=== PATIENT | male | born 1995 | race Caucasian/White ===

== ENCOUNTER 2019-01-17 14:11 | Emergency (ER) | payer BC, OTHER ==
[~2019-01-17] VITALS: Ht 165.1 cm; Wt 59.0 kg
[2019-01-17] MEDS ORDERED: ONDANSETRON 4 MG (ZOFRAN) ORAL DISSOLVE TAB PO STA (14:26)
[2019-01-17] MEDS ORDERED: PANTOPRAZOLE 40 MG (PROTONIX) TAB PO ONE (14:30)
--- NOTE | 2019-01-17 14:33 | ED GI ---
General Stated Complaint: VOMITING BLOOD Source of Information: Patient Exam Limitations: No Limitations History of Present Illness Date Seen by Provider: Jan 17, 2019 Time Seen by Provider: 14:18 Initial Comments Patient presents to ER by private conveyance with chief complaint that he knows some bright red blood in his vomit this morning. This today he participated in a festival and drank a significant quantity of beer to the point that this morning he had a hangover and vomited 3 times. The first 2 times were normal but the third time he noticed some bright red blood in it. He is on have a history of anemia, having no chest pain shortness of breath. He has some mild intermittent nausea still. He has no significant medical history does not take any medicines nor follow with a doctor. He denies a history of IV drug use, hepatitis or liver disease. He's never had endoscopy done. He denies history of GERD Allergies and Home Medications Allergies Coded Allergies: No Known Drug Allergies (Unverified , 01/17/19) Home Medications Pantoprazole Sodium 40 Mg Tablet.dr, 40 MG PO DAILY Prescribed by: MT GARDNER on 01/17/19 1435 Sucralfate 1 Gm Tablet, 1 GM PO QIDACHS Prescribed by: MT GARDNER on 01/17/19 1435 Patient Home Medication List Home Medication List Reviewed: Yes Review of Systems Review of Systems Constitutional: No chills, No diaphoresis EENTM: No Blurred Vision, No Double Vision Respiratory: Denies Cough, Denies Shortness of Air Cardiovascular: Denies Chest Pain, Denies Lightheadedness Gastrointestinal: See HPI; Denies Constipated, Denies Diarrhea; Nausea, Vomiti ng Musculoskeletal: No back pain, No joint pain Past Wvpvafz-[id number]-Wbgfil Hx Patient Social History Alcohol Use: Occasionally Uses Recreational Drug Use: No Smoking Status: Never a Smoker Physical Exam Vital Signs Vital Signs - First Documented 01/17/19 14:21 Temp 98.6 Pulse 110 Resp 18 B/P (MAP) 122/80 (94) Pulse Ox 98 O2 Delivery Room Air Capillary Refill : Height/Weight/BMI Height: '" Weight: lbs. oz. kg; BMI Method: General Appearance: WD/WN, no apparent distress HEENT: PERRL/EOMI, normal ENT inspection Neck: non-tender, full range of motion, normal inspection Respiratory: chest non-tender, lungs clear, normal breath sounds, no respiratory distress, no accessory muscle use Cardiovascular: normal peripheral pulses, regular rate, rhythm Peripheral Pulses: 2+ Radial Pulses (R), 2+ Radial Pulses (L) Gastrointestinal: non tender, soft Neurologic/Psychiatric: alert, normal mood/affect, oriented x 3 Skin: normal color, warm/dry Progress/Results/Core Measures Results/Orders Lab Results Laboratory Tests Test 01/17/19 14:55 Range/Units White Blood Count 14.1 H 4.3-11.0 10^3/uL Red Blood Count 5.58 4.35-5.85 10^6/uL Hemoglobin 16.3 13.3-17.7 G/DL Hematocrit 47 40-54 % Mean Corpuscular Volume 85 80-99 FL Mean Corpuscular Hemoglobin 29 25-34 PG Mean Corpuscular Hemoglobin Concent 34 32-36 G/DL Red Cell Distribution Width 12.9 10.0-14.5 % Platelet Count 300 130-400 10^3/uL Mean Platelet Volume 10.1 7.4-10.4 FL Neutrophils (%) (Auto) 85 H 42-75 % Lymphocytes (%) (Auto) 11 L 12-44 % Monocytes (%) (Auto) 3 0-12 % Eosinophils (%) (Auto) 1 0-10 % Basophils (%) (Auto) 1 0-10 % Neutrophils # (Auto) 12.0 H 1.8-7.8 X 10^3 Lymphocytes # (Auto) 1.5 1.0-4.0 X 10^3 Monocytes # (Auto) 0.5 0.0-1.0 X 10^3 Eosinophils # (Auto) 0.1 0.0-0.3 10^3/uL Basophils # (Auto) 0.1 0.0-0.1 10^3/uL Neutrophils % (Manual) 78 % Lymphocytes % (Manual) 14 % Monocytes % (Manual) 2 % Eosinophils % (Manual) 1 % Basophils % (Manual) 0 % Band Neutrophils 5 % Blood Morphology Comment NORMAL Sodium Level 144 135-145 MMOL/L Potassium Level 4.1 3.6-5.0 MMOL/L Chloride Level 101 98-107 MMOL/L Carbon Dioxide Level 22 21-32 MMOL/L Anion Gap 21 H 5-14 MMOL/L Blood Urea Nitrogen 12 7-18 MG/DL Creatinine 0.88 0.60-1.30 MG/DL Estimat Glomerular Filtration Rate > 60 BUN/Creatinine Ratio 14 Glucose Level 112 H 70-105 MG/DL Calcium Level 9.9 8.5-10.1 MG/DL Corrected Calcium 8.5-10.1 MG/DL Total Bilirubin 0.7 0.1-1.0 MG/DL Aspartate Amino Transf (AST/SGOT) 23 5-34 U/L Alanine Aminotransferase (ALT/SGPT) 28 0-55 U/L Alkaline Phosphatase 66 40-136 U/L Total Protein 8.3 H 6.4-8.2 GM/DL Albumin 4.9 H 3.2-4.5 GM/DL Lipase 23 8-78 U/L My Orders Orders - MT GARDNER Cbc With Automated Diff (01/17/19 14:26) Comprehensive Metabolic Panel (01/17/19 14:26) Lipase (01/17/19 14:26) Ondansetron Oral Dissolve Tab (Zofran (01/17/19 14:26) Pantoprazole Tablet (Protonix Tablet) (01/17/19 14:30) Manual Differential (01/17/19 14:55) Medications Given in ED Current Medications Medications Dose Ordered Sig/Shin Route Start Time Stop Time Status Last Admin Dose Admin Pantoprazole Sodium 40 mg ONCE ONCE PO 01/17/19 14:30 01/17/19 14:31 DC 01/17/19 14:47 40 MG Vital Signs/I&O 01/17/19 14:21 Temp 98.6 Pulse 110 Resp 18 B/P (MAP) 122/80 (94) Pulse Ox 98 O2 Delivery Room Air Progress Progress Note : Time: 14:30 Progress Note I suspect the patient is suffering from some erosive esophagitis related to his alcohol consumption and frequent vomiting this morning. He is mildly tachycardic in the 108 initially so we'll draw some labs to prove is not anemic. He is probably dehydrated from the alcohol intake. Pantoprazole and Zofran. We can set him up for follow-up with the general surgeon for endoscopy outpatient. Departure Impression Primary Impression: Hematemesis with nausea Additional Impression: Acute gastritis with bleeding Qualified Codes: K29.21 - Alcoholic gastritis with bleeding Disposition: HOME, SELF-CARE Condition: Stable Departure-Patient Inst. Decision time for Depature: 15:41 Referrals: DINO NOVOA DO NO,LOCAL PHYSICIAN (PCP) Primary Care Physician Patient Instructions: Gastritis (DC), Nausea and Vomiting, Adult Add. Discharge Instructions: If you have nausea take Zofran 1 tablet every 6 hours under the tongue as necessary. Lots of fluids will be helpful. When you're nausea is gone you can start advancing your diet towards more substantial foods. Take the pantoprazole 40 mg daily for the next 2 weeks. Take the Carafate 30 minutes prior to meals and at bedtime, 4 times a day for the next 2 weeks to protect your stomach lining. If you're still having symptoms by Saturday or symptoms of acid reflux, indigestion at the end of the 2 weeks then you should follow-up with the general surgeon Dr. Novoa by calling for an appointment. Return to the ER to begin to experience chest pain, intractable nausea with vomiting, abdominal pain or other worrisome symptom. Scripts Sucralfate (Carafate) 1 Gm Tablet 1 GM PO QIDACHS for 14 Days, #56 TAB 0 Refills Prov: MT GARDNER 01/17/19 Pantoprazole Sodium (Pantoprazole Sodium) 40 Mg Tablet. 40 MG PO DAILY for 14 Days, #14 TAB 0 Refills Prov: MT GARDNER 01/17/19 MT GARDNER Jan 17, 2019 14:33
[2019-01-17] MEDS ORDERED: PANT40TA3 PO (14:35)
[2019-01-17] MEDS ORDERED: SUCR1TAB36 PO (14:35)
[2019-01-17 15:04] LABS: WHITE BLOOD COUNT 14.1 10^3/uL (4.3-11.0)
[2019-01-17 15:05] LABS: BASOPHILS # (AUTO) 0.1 10^3/uL (0.0-0.1); BASOPHILS % (AUTO) 1 % (0-10); EOSINOPHILS # (AUTO) 0.1 10^3/uL (0.0-0.3); EOSINOPHILS % (AUTO) 1 % (0-10); HEMATOCRIT 47 % (40-54); HEMOGLOBIN 16.3 G/DL (13.3-17.7); LYMPHOCYTES # (AUTO) 1.5 X 10^3 (1.0-4.0); LYMPHOCYTES % (AUTO) 11 % (12-44); MEAN CORPUSCULAR HEMOGLOBIN 29 PG (25-34); MEAN CORPUSCULAR HGB CONC 34 G/DL (32-36); MEAN CORPUSCULAR VOLUME 85 FL (80-99); MEAN PLATELET VOLUME 10.1 FL (7.4-10.4); MONOCYTES # (AUTO) 0.5 X 10^3 (0.0-1.0); MONOCYTES % (AUTO) 3 % (0-12); NEUTROPHILS % (AUTO) 85 % (42-75); PLATELET COUNT 300 10^3/uL (130-400); RED CELL DISTRIBUTION WIDTH 12.9 % (10.0-14.5)
[2019-01-17 15:23] LABS: ALANINE AMINOTRANSFERASE 28 U/L (0-55); ALBUMIN 4.9 GM/DL (3.2-4.5); ALKALINE PHOSPHATASE 66 U/L (40-136); BAND NEUTROPHILS 5 %; BILIRUBIN,TOTAL 0.7 MG/DL (0.1-1.0); BUN/CREATININE RATIO 14; CALCIUM 9.9 MG/DL (8.5-10.1); CARBON DIOXIDE 22 MMOL/L (21-32); CHLORIDE 101 MMOL/L (98-107); CREATININE SERUM 0.88 MG/DL (0.60-1.30); EOSINOPHILS % (MANUAL) 1 %; GFR ESTIMATED > 60; GLUCOSE 112 MG/DL (70-105); LIPASE 23 U/L (8-78); LYMPHOCYTES % (MANUAL) 14 %; MONOCYTES % (MANUAL) 2 %; NEUTROPHILS % (MANUAL) 78 %; POTASSIUM 4.1 MMOL/L (3.6-5.0); SODIUM 144 MMOL/L (135-145); TOTAL PROTEIN 8.3 GM/DL (6.4-8.2)
[2019-01-17 15:24] LABS: BASOPHILS % (MANUAL) 0 %; RBC MORPH NORMAL
[2019-01-17] MEDS ORDERED: ONDA4TAB11 PO (15:50)
[2019-01-17 15:52] VITALS: BP 117/71
== END 2019-01-17 15:52 | disposition home or self-care (01) ==
LOC: ER FS 14:13
DX: K92.0 Hematemesis (principal); K29.01 Acute gastritis with bleeding
CPT/HCPCS: 36415; 80053; 83690; 85007; 85027